=== PATIENT | female | born 1980 | race Caucasian/White ===

== ENCOUNTER 2016-11-23 11:30 | Inpatient (IN) ==
[2016-11-23] MEDS ORDERED: SODIUM CHLORIDE 0.9% INJ PRN (12:38)
[2016-11-23] MEDS ORDERED: LR 1,000 ML IV SCH (12:38)
[2016-11-23] MEDS ORDERED: NARCAN IV PRN ×2 (12:38→12:59)
[2016-11-23] MEDS ORDERED: DILAUDID-HP 30 MG in NS 27 ML IV PRN (12:38)
[2016-11-23] MEDS ORDERED: BENADRYL IV PRN ×2 (12:38→12:59)
[2016-11-23] MEDS ORDERED: PHENERGAN IV PRN (12:38)
--- NOTE | 2016-11-23 13:03 | Diag Imaging Result Doc PS360 ---
EXAM: CHEST-2 VIEWS HISTORY: postop pain-gallbladder TECHNIQUE: COMPARISON: None. FINDINGS: The lungs are well expanded. The heart is not enlarged. The vessels are not distended. There are no infiltrates. No pleural effusions. No free air beneath the diaphragm. IMPRESSION: No acute abnormality. Electronically signed by Antony Dupont 11/23/2016 1:00 PM
[2016-11-23] MEDS: LR 1,000 ML IV SCH (13:18)
[2016-11-23] MEDS: DILAUDID PCA VIAL IV PRN (13:18)
[2016-11-23] MEDS: D5 1/2 NS 1,000 ML IV SCH (14:27)
[2016-11-23] MEDS: KEFZOL 1 GM/D5W 1 GM/50 ML IVPB IV SCH ×2 (17:31→21:39)
[2016-11-23] MEDS: PROTONIX IV SCH (17:38)
[2016-11-23] MEDS: SODIUM CHLORIDE 0.9% INJ SCH (17:38)
[2016-11-23] MEDS: SODIUM CHLORIDE 0.9% INJ PRN (21:39)
[2016-11-23] MEDS: PHENERGAN IV PRN (21:39)
[2016-11-24] MEDS: ZOFRAN IV PRN (02:01)
[2016-11-24] MEDS: KEFZOL 1 GM/D5W 1 GM/50 ML IVPB IV SCH ×3 (04:08→20:48)
[2016-11-24] MEDS: D5 1/2 NS 1,000 ML IV SCH ×2 (04:08→20:56)
[2016-11-24] MEDS: PHENERGAN IV PRN ×2 (04:49→13:50)
[2016-11-24] MEDS: SODIUM CHLORIDE 0.9% INJ PRN ×2 (04:49→13:50)
[2016-11-24 06:35] LABS: MANUAL DIFF NEEDED? NO
[2016-11-24 06:47] LABS: BASO% 0.2 % (0.0-0.8); EOS# 0.05 X1000 (0.0-0.7); EOS% 0.3 % (0.0-10.0); HEMATOCRIT 38.1 % (37.0-47.0); HEMOGLOBIN 12.6 g/dL (12.0-16.0); IMM GRAN# 0.04 X1000 (0.0-0.04); IMM GRAN% 0.3 % (0.0-0.5); LYMPH# 2.19 X1000 (1.2-3.4); LYMPH% 13.9 % (20.5-51.1); MCHC 33.1 g/dL (33-37); MCV 81.8 FL (81-99); MONO# 0.97 X1000 (0.11-0.59); MONO% 6.2 % (1.7-9.3); MPV 10.6 FL (7.4-10.4); NEUT% 79.1 % (42.2-75.2); PLT 320 X1000 (130-400); RBC 4.66 XMIL (4.2-5.4)
[2016-11-24 07:03] LABS: AGAP 15; ALBUMIN 3.4 g/dL (3.5-5.0); ALKALINE PHOSPHATASE 51 U/L (32-104); BUN 8 mg/dL (8-22); CALCIUM 8.5 mg/dL (8.8-10.2); CHLORIDE 99 mmol/L (98-107); COSMO 277; GOT 41 U/L (10-30); GPT 35 U/L (10-36); POTASSIUM 4.1 mmol/L (3.5-5.1); SODIUM 138 mmol/L (136-145); TCO2 24 mmol/L (25-35); TOTAL BILIRUBIN 0.31 mg/dL (0.20-1.00); TOTAL PROTEIN 6.3 g/dL (6.3-8.3)
--- NOTE | 2016-11-24 08:10 | Diag Imaging Result Doc PS360 ---
EXAM: ABDOMEN/PELVIS W/PO AND IV CON INDICATION: postop pain-gallbladder TECHNIQUE: Dose reduction protocol was used. COMPARISON: None. FINDINGS: There is subsegmental atelectasis at the lung bases. There has been a very recent cholecystectomy. There is free fluid in the gallbladder fossa and a small to moderate amount of fluid tracking around the liver, spleen, and extending into the pelvis. Biliary leak cannot completely be excluded. Consider correlation with HIDA scan. There is no evidence of significant biliary dilatation. There is no loculated fluid collection to indicate abscess. There are a couple tiny droplets of gas anterior to the left hepatic lobe and in the infraumbilical region that are assumed to be postsurgical. Otherwise, the liver, spleen, adrenal glands, pancreas, kidneys, urinary bladder, reproductive tract, appendix, and GI tract are unremarkable. There are a few subcutaneous postsurgical gas droplets at the incisional sites. IMPRESSION: 1.Postsurgical changes related to a very recent cholecystectomy. 2.Small to moderate amount of free fluid in the gallbladder fossa, tracking around the liver and spleen, and extending to the pelvis. Bile leak cannot be excluded. Electronically signed by Moises Stahl 11/24/2016 8:08 AM
[2016-11-24] MEDS: LR 1,000 ML IV SCH (11:49)
--- NOTE | 2016-11-24 13:34 | Diag Imaging Result Doc PS360 ---
HIDA SCAN W/O EJECT. FRACTION - 11/24/2016 INDICATION: r/o bile leak TECHNIQUE: 4.9 mCi of Choletec was administered COMPARISON: CT abdomen pelvis earlier today FINDINGS: There is normal uptake and clearance by the liver. There is some uptake throughout the hepatic ducts and common bile duct. There is prompt, intense accumulation in the region of the gallbladder. This extends to the liver dome and tracks along the right abdominal wall. This is compatible with a bile leak probably from the cystic duct stump. IMPRESSION: Bile leak from the cystic duct stump. Electronically signed by Nba Ron 11/24/2016 1:32 PM
[2016-11-24] MEDS: DILAUDID PCA VIAL IV PRN (13:37)
[2016-11-24] MEDS: SODIUM CHLORIDE 0.9% INJ SCH (13:44)
[2016-11-24] MEDS: PROTONIX IV SCH (13:44)
[2016-11-24] MEDS ORDERED: DIPRIVAN 1% ONE (16:22)
[2016-11-24] MEDS ORDERED: LR 1,000 ML ONE (16:27)
[2016-11-24] MEDS ORDERED: MARCAINE 0.25% PF/EPI 1:200,000 ONE (16:27)
[2016-11-24] MEDS ORDERED: XYLOCAINE-MPF 2% ONE (16:44)
[2016-11-24] MEDS ORDERED: ZOFRAN ONE (16:44)
[2016-11-24] MEDS ORDERED: OFIRMEV 1000 MG/ISOTONIC SOLN 1,000 MG/100 ML BOTTLE ONE (16:44)
[2016-11-24] MEDS ORDERED: QUELICIN (DOSE) ONE (16:44)
[2016-11-24] MEDS ORDERED: ZEMURON ONE (16:44)
[2016-11-24] MEDS ORDERED: DECADRON ONE (16:44)
[2016-11-24] MEDS ORDERED: NEOSTIGMINE ONE (16:51)
[2016-11-24] MEDS ORDERED: TORADOL ONE (16:51)
[2016-11-24] MEDS ORDERED: ROBINUL ONE (16:51)
[2016-11-24] MEDS ORDERED: MORPHINE PCA ONE (17:48)
[2016-11-24] MEDS ORDERED: 1/2 NS 1,000 ML ONE (17:49)
--- NOTE | 2016-11-24 18:46 | OPERATIVE NOTE ---
PROCEDURE DATE: 11/24/2016 PREOPERATIVE DIAGNOSES: Bile leak from cholecystectomy 11/23. POSTOPERATIVE DIAGNOSIS: Bile leak from cholecystectomy 11/23. PROCEDURE: Laparoscopy with placement of drains. One drain in the right subphrenic space. One drain in the pelvis. DESCRIPTION OF PROCEDURE: The patient is brought to the operating room after satisfactory induction of IV and endotracheal anesthesia, athrombic TEDs and Blackburn catheter and orogastric tubes were placed. Her abdomen was broadly prepped and draped in the appropriate manner for laparoscopy. Initially, the recently closed infraumbilical scar was infiltrated with Marcaine and Xylocaine with epinephrine and re-incised. The Surgilon sutures were removed and the peritoneum was entered. Jackie trocar was placed. The abdomen was insufflated to 3.5 L of carbon dioxide. The previous right 10 mm incision in the epigastrium was subsequently reopened again after infiltration with Marcaine. A 10 mm trocar was placed. Several hundred mL of bile around the liver in the right subphrenic space was aspirated away. The lateral 5 mm trocar was subsequently reopened and a 5 mm trocar was re-placed. A 10 mm Olvin-Caicedo drain was subsequently placed in the right subphrenic space. It was brought out through the right lateral trocar incision, hooked to suction and anchored with 0 Surgilon. Attention was then taken to the pelvis in the left side of the abdomen. A 5 mm trocar was placed and another 10 mm Olvin-Caicedo drain was placed in the pelvis behind the uterus. Inspection of the right lower quadrant where the patient is having chronic lower abdominal pain revealed a normal-appearing appendix and a normal tube and ovary and uterus in this right side. The drains were both hooked to suction. A total of about 700 mL was removed. They were both anchored with 0 Surgilon. The trocars were subsequently removed. The subumbilical incision underwent fascial closures of 0 Surgilon. All skin incisions were closed with stainless steel clips. Sterile dressings were applied. The patient was awakened and extubated in the operating room and transferred to recovery. Estimated blood loss was less than 10 mL. Blackburn catheter was left indwelling. She will be transferred to Recovery and have a scheduled ERCP in the next 2 days or so. cc: Sha Daniels MD
[2016-11-24] MEDS: 1/2 NS 1,000 ML IV SCH (21:00)
[2016-11-25] MEDS: KEFZOL 1 GM/D5W 1 GM/50 ML IVPB IV SCH ×3 (05:01→22:00)
[2016-11-25] MEDS: 1/2 NS 1,000 ML IV SCH ×3 (05:02→16:31)
[2016-11-25 06:38] LABS: MANUAL DIFF NEEDED? NO
[2016-11-25 06:45] LABS: BASO% 0.1 % (0.0-0.8); HEMATOCRIT 36.7 % (37.0-47.0); IMM GRAN# 0.02 X1000 (0.0-0.04); IMM GRAN% 0.2 % (0.0-0.5); LYMPH# 1.52 X1000 (1.2-3.4); LYMPH% 13.4 % (20.5-51.1); MCH 27.1 PG (27-31); MCHC 32.7 g/dL (33-37); MONO# 0.84 X1000 (0.11-0.59); MONO% 7.4 % (1.7-9.3); MPV 10.6 FL (7.4-10.4); NEUT% 78.9 % (42.2-75.2); PLT 289 X1000 (130-400); RBC 4.42 XMIL (4.2-5.4)
[2016-11-25] MEDS: PHENERGAN IV PRN (06:54)
[2016-11-25] MEDS: SODIUM CHLORIDE 0.9% INJ PRN (06:54)
[2016-11-25 07:00] LABS: AGAP 10; ALBUMIN 3.3 g/dL (3.5-5.0); ALKALINE PHOSPHATASE 50 U/L (32-104); BUN 8 mg/dL (8-22); CALCIUM 8.2 mg/dL (8.8-10.2); CHLORIDE 101 mmol/L (98-107); COSMO 271; GOT 21 U/L (10-30); GPT 29 U/L (10-36); POTASSIUM 4.1 mmol/L (3.5-5.1); SODIUM 136 mmol/L (136-145); TCO2 25 mmol/L (25-35); TOTAL BILIRUBIN 0.39 mg/dL (0.20-1.00); TOTAL PROTEIN 6.2 g/dL (6.3-8.3)
--- NOTE | 2016-11-25 07:09 | Diag Imaging Result Doc PS360 ---
EXAM: CHEST-PORTABLE HISTORY: post op drain placement for bile leak TECHNIQUE: Portable COMPARISON: 11/23/2016 FINDINGS: Poor inspiratory effort. Heart is borderline mildly prominent. The vessels are not distended. No pneumonia. No pleural effusions identified. IMPRESSION: Stable chest. Electronically signed by Antony Dupont 11/25/2016 7:06 AM
[2016-11-25 08:17] LABS: INR 1.04; PTT 28.7 Seconds (22.0-36.0)
[2016-11-25] MEDS ORDERED: XYLOCAINE-MPF 2% ONE (10:57)
[2016-11-25] MEDS ORDERED: DIPRIVAN 1% ONE ×2 (10:57→12:17)
[2016-11-25] MEDS ORDERED: FENTANYL ONE ×2 (10:58→12:41)
[2016-11-25] MEDS ORDERED: VERSED ONE (11:55)
--- NOTE | 2016-11-25 12:47 | Diag Imaging Result Doc PS360 ---
EXAM: ERCP-BILIARY AND PANCREATIC HISTORY: s/p gallbladder surgery TECHNIQUE: Three views taken during a procedure performed by Dr. Vail COMPARISON: None. FINDINGS: Contrast fills the common bile duct. A catheter and stent were placed. Catheter was then removed. IMPRESSION: A stent was placed in the common bile duct. Electronically signed by Antony Dupont 11/25/2016 12:45 PM
[2016-11-25] MEDS: DILAUDID ONE ×2 (12:50→12:59)
--- NOTE | 2016-11-25 13:14 | OPERATIVE NOTE ---
PROCEDURE DATE: 11/25/2016 PROCEDURES: 1. Endoscopic retrograde cholangiopancreatography. 2. Endoscopic retrograde cholangiopancreatography with sphincterotomy. 3. Endoscopic retrograde cholangiopancreatography with stent placement. PREOPERATIVE DIAGNOSIS: Bile leak. POSTOPERATIVE DIAGNOSIS: Bile leak around the cystic duct stump, stented. DESCRIPTION OF PROCEDURE IN DETAIL: After informed consent and adequate intravenous sedation by anesthesia, the scope introduced to the esophagus, stomach and duodenum. Ampulla appears normal. A selective cholangiogram was done and the leak was established. At this point, a guidewire was placed all the way above the leak. A 9 cm, 10-[place] stent was deployed after standard sphincterotomy and the scope was withdrawn. The patient tolerated the procedure well without any immediate complications. cc: MD Sha Ferro MD
[2016-11-25] MEDS: SODIUM CHLORIDE 0.9% INJ SCH (13:41)
[2016-11-25] MEDS: PROTONIX IV SCH (13:41)
[2016-11-25] MEDS: DILAUDID PCA VIAL IV PRN (13:45)
[2016-11-25] MEDS: LR 1,000 ML IV SCH (16:31)
[2016-11-26] MEDS: 1/2 NS 1,000 ML IV SCH ×3 (02:00→21:50)
[2016-11-26] MEDS: KEFZOL 1 GM/D5W 1 GM/50 ML IVPB IV SCH ×3 (05:00→21:13)
[2016-11-26] MEDS: SODIUM CHLORIDE 0.9% INJ SCH ×2 (07:33→12:03)
[2016-11-26] MEDS: PHENERGAN IV PRN ×2 (07:33→17:41)
[2016-11-26] MEDS: PROTONIX IV SCH (12:03)
--- NOTE | 2016-11-26 12:24 | PROGRESS NOTE ---
DATE: 11/26/2016 SUBJECTIVE: Patient currently resting in bed. She complains of abdominal pain. She had a bile leak and she had an ERCP yesterday by Dr. Mcginnis and 9 cm 10-[place] stent was placed. Her KWABENA drains are draining a small amount of bilious fluid. She has had chronic constipation and IBS. Her last one was about 3-4 days ago. She has history of reflux disease in the past as well. She denies any vomiting during this hospitalization. She complains of nausea and bloating. She denies any fevers, rigors, or chills. OBJECTIVE: Vital signs: Temperature 98.2, pulse of 82, respiratory rate 20, blood pressure 122/71, saturating 93% 2 L nasal cannula. Body weight of 273 pounds 6 ounces, BMI of 38.1 kg/m2. General: Obese, lying in bed, in no acute distress. HEENT: No pallor. No icterus. Neck: Supple. Abdomen: Two drains noted, one in the right upper quadrant and one in the left upper quadrant draining a small amount of bilious fluid. Abdomen is appropriately tender. Bowel sounds are hypoactive. Extremities: No cyanosis, clubbing, edema. Neurologic: Alert, awake, oriented. LABS: Her hemoglobin and hematocrit are 12 and 36.7, white count of 11.35, platelet count 289,000. PT of 11, INR 1.04, PTT of 28.7. Sodium 130, potassium 4.1, chloride 101, bicarb 25, anion gap 10, BUN of 8, creatinine 0.7, glucose 118, calcium is 8.2, total bilirubin is 0.39, AST 21, ALT 29, alkaline phosphatase, total protein 6.2, albumin 3.3. CT of the abdomen and pelvis done on 11/24/2016 which showed post surgical changes recent cholecystectomy. Small to moderate amount of free fluid in the gallbladder foci suggesting bile leak. HIDA scan showed bile leak from the cystic duct stump. Chest x-ray done yesterday showed stable chest, poor inspiratory effort. ASSESSMENT AND PLAN: 1. Bile leak status post ERCP with common duct stenting on 11/25/2016. She will follow with Dr. Mcginnis in 4-6 weeks to perform ERCP stent removal. 2. Recent cholecystectomy. Low-fat diet when she is able to start orally. 3. Ileus and bloating. Will give her a dose of Dulcolax suppository and may start her on MiraLAX by mouth. 4. Will keep her on Protonix for GI prophylaxis once daily. 5. She will continue IV fluids and IV pain control per the primary care team. 6. The patient has ongoing gastrointestinal issues of irritable bowel syndrome. She will follow with me as an outpatient in order to work those up. Further recommendations pending hospital course. cc: MD Sha Harley MD Robert Hall, MD MTDD
[2016-11-26] MEDS: LR 1,000 ML IV SCH (18:25)
[2016-11-26] MEDS ORDERED: PHENERGAN IV ONE ×2 (20:54→21:00)
[2016-11-26] MEDS: SODIUM CHLORIDE 0.9% INJ ONE (21:13)
[2016-11-26] MEDS: DULCOLAX PR SCH (21:13)
[2016-11-27] MEDS: DILAUDID PCA VIAL IV PRN (02:40)
[2016-11-27] MEDS: KEFZOL 1 GM/D5W 1 GM/50 ML IVPB IV SCH ×3 (04:58→20:17)
[2016-11-27 06:24] LABS: MANUAL DIFF NEEDED? NO
[2016-11-27 06:27] LABS: BASO% 0.4 % (0.0-0.8); EOS# 0.19 X1000 (0.0-0.7); EOS% 2.1 % (0.0-10.0); HEMATOCRIT 32.9 % (37.0-47.0); HEMOGLOBIN 10.8 g/dL (12.0-16.0); IMM GRAN# 0.08 X1000 (0.0-0.04); IMM GRAN% 0.9 % (0.0-0.5); LYMPH# 1.61 X1000 (1.2-3.4); LYMPH% 17.9 % (20.5-51.1); MCH 27.1 PG (27-31); MCHC 32.8 g/dL (33-37); MCV 82.7 FL (81-99); MONO# 0.67 X1000 (0.11-0.59); MONO% 7.5 % (1.7-9.3); MPV 10.3 FL (7.4-10.4); NEUT% 71.2 % (42.2-75.2); PLT 284 X1000 (130-400); RBC 3.98 XMIL (4.2-5.4)
[2016-11-27 06:59] LABS: AGAP 9; ALBUMIN 2.9 g/dL (3.5-5.0); ALKALINE PHOSPHATASE 67 U/L (32-104); BUN 4 mg/dL (8-22); CALCIUM 8.6 mg/dL (8.8-10.2); CHLORIDE 97 mmol/L (98-107); COSMO 266; GOT 9 U/L (10-30); GPT 14 U/L (10-36); POTASSIUM 3.4 mmol/L (3.5-5.1); SODIUM 134 mmol/L (136-145); TCO2 28 mmol/L (25-35); TOTAL BILIRUBIN 0.46 mg/dL (0.20-1.00); TOTAL PROTEIN 6.1 g/dL (6.3-8.3)
[2016-11-27] MEDS: 1/2 NS 1,000 ML IV SCH ×2 (07:45→14:58)
[2016-11-27] MEDS: ZOFRAN IV PRN ×2 (07:48→20:31)
[2016-11-27] MEDS: SODIUM CHLORIDE 0.9% INJ SCH (13:00)
[2016-11-27] MEDS: PROTONIX IV SCH (14:56)
[2016-11-27] MEDS: LR 1,000 ML IV SCH (18:18)
[2016-11-27] MEDS: DULCOLAX PR SCH (20:17)
[2016-11-27] MEDS: SODIUM CHLORIDE 0.9% INJ ONE (23:45)
[2016-11-27] MEDS: PHENERGAN IV PRN (23:45)
[2016-11-28] MEDS: 1/2 NS 1,000 ML IV SCH ×4 (04:32→23:29)
[2016-11-28] MEDS: KEFZOL 1 GM/D5W 1 GM/50 ML IVPB IV SCH ×3 (04:32→23:28)
[2016-11-28] MEDS: SODIUM CHLORIDE 0.9% INJ PRN (05:59)
[2016-11-28] MEDS: PHENERGAN IV PRN (05:59)
[2016-11-28] MEDS: LR 1,000 ML IV SCH ×2 (11:44→11:45)
[2016-11-28] MEDS: PROTONIX IV SCH (13:35)
[2016-11-28] MEDS: SODIUM CHLORIDE 0.9% INJ SCH (13:36)
[2016-11-28] MEDS: DILAUDID PCA VIAL IV PRN (17:55)
[2016-11-28] MEDS: DULCOLAX PR SCH (23:48)
[2016-11-28] MEDS ORDERED: SODIUM CHLORIDE 0.9% INJ PRN (23:58)
[2016-11-29] MEDS: 1/2 NS 1,000 ML IV SCH ×2 (08:34→10:48)
[2016-11-29] MEDS: KEFZOL 1 GM/D5W 1 GM/50 ML IVPB IV SCH ×2 (08:46→13:43)
[2016-11-29] MEDS: LOVENOX SUBQ SCH (08:46)
[2016-11-29] MEDS: LR 1,000 ML IV SCH (11:29)
[2016-11-29] MEDS: PHENERGAN IV PRN ×3 (13:40→22:12)
[2016-11-29] MEDS: PROTONIX IV SCH (13:42)
[2016-11-29] MEDS: SODIUM CHLORIDE 0.9% INJ SCH (13:43)
[2016-11-30] MEDS: 1/2 NS 1,000 ML IV SCH ×2 (04:24→07:18)
[2016-11-30] MEDS: DULCOLAX PR SCH (04:24)
[2016-11-30] MEDS: KEFZOL 1 GM/D5W 1 GM/50 ML IVPB IV SCH ×2 (04:24→05:36)
[2016-11-30 05:24] LABS: BILIRUBIN URINE NEGATIVE (NEGATIVE); BLOOD URINE NEGATIVE (NEGATIVE); COLOR YELLOW; GLUCOSE URINE NEGATIVE (NEGATIVE); LEUKOCYTES URINE NEGATIVE (NEGATIVE); NITRITE URINE NEGATIVE (NEGATIVE); PROTEIN URINE NEGATIVE (NEGATIVE); SP GRAVITY URINE 1.009; TURBIDITY URINE CLEAR (CLEAR); UR EPITHELIAL CELLS <10 /HPF (<10); URINE BACTERIA NEGATIVE /HPF; URINE CULTURE NEEDED? NO; URINE MICRO REVIEW NEEDED? NO; URINE RBC <10 /HPF (<10); URINE SOURCE CLEAN CATCH; URINE WBC <10 /HPF (<10); UROBILINOGEN URINE NORMAL (NORMAL)
[2016-11-30] MEDS: LOVENOX SUBQ SCH (05:37)
[2016-11-30] MEDS: ZOFRAN IV PRN (11:33)
[2016-11-30 11:41] VITALS: BP 134/82
--- NOTE | 2016-11-30 17:56 | PROGRESS NOTE ---
DATE: 11/30/2016 SUBJECTIVE: Patient is resting in chair. Her friend was present at bedside. She denies any fevers, rigors, or chills. She was eating her meals better. She had 1 bowel movement yesterday. Her KWABENA drains were removed by Dr. Daniels. She denies any vomiting or vomiting blood. She does complain of mild constipation which is improving. OBJECTIVE: Vital signs: Temperature of 98.5, T-max this morning was 100.8, pulse rate of 89, respiratory rate of 18, blood pressure 121/65, saturating 93% on room air. Body weight of 273 pounds 6 ounces. General appearance: Moderately built, moderately nourished , sitting in chair, in no acute distress. HEENT: Mild pallor. No icterus. Neck: Supple. Abdomen: Discomfort at the surgical site and the drain site. The surgical dressings are noted. Bowel sounds are present but hypoactive. No guarding. No rebound. Extremities: No cyanosis, clubbing , edema. Neurologic: She is alert, awake, oriented. LABS: Hemoglobin and hematocrit are 10.8 and 32.9, white count of 8.97, platelet count of 284,000. Sodium 132, potassium 3.4, chloride 97, bicarb 20, anion gap of 9, BUN of 4, creatinine 0.7, glucose of 109, calcium is 8.6, AST 9, ALT 14, alkaline phosphatase 67, total protein 6.1, albumin of 2.9, total bilirubin is 0.46, amylase of 48. These labs are from 07/2016. Her urinalysis done today was unrevealing. IMPRESSION AND PLAN: 1. Bile leak status post endoscopic retrograde cholangiopancreatogram with common bile duct stenting on 11/25/[address] Mcginnis. The patient will follow up with Dr. Mcginnis in 4- 6 weeks to schedule for ERCP stent removal. 2. Constipation. She will continue on Dulcolax suppository at bedtime as needed and continue MiraLAX 34 g every day. 3. Reflux disease. She will continue on Prilosec/Protonix once daily for 6-8 weeks and then as needed. 4. Low grade temperature. Negative UA. Patient will need to keep an eye as an outpatient as well. If she continues to have worsening fever she needs to probably come back to the hospital. 5. Status post cholecystectomy she will continue follow up with Dr. Daniels. I also recommended her to be on a low-fat diet when she is able to start advancing her diet. The above plan was discussed with the patient and all questions answered. cc: MD Sha Harley MD Robert Hall, MD MTDD
--- NOTE | 2016-12-02 13:31 | DISCHARGE SUMMARY ---
ADMISSION DATE: 11/23/2016 DISCHARGE DATE: 11/30/2016 DIAGNOSIS: Bile leak status post cholecystectomy. PROCEDURES PERFORMED: 1. Repeat laparoscopy with drain placement right subphrenic space and pelvis. 2. ERCP by Dr. Mcginnis with stent placement. Prolonged hospitalization secondary to ileus and multiple complaints of pain. HOSPITAL COURSE: The patient is a 36-year-old, white female referred from [facility] and from Dr. Lesly Kang for evaluation of abdominal pain. Multiple workups have been obtained. She mostly has pain in her right lower quadrant. A CT scan has revealed no evidence of appendicitis. BIOMETRICS HEAD examination revealed no BIOMETRICS HEAD pathology. Outpatient ultrasound and a HIDA scan revealed no stones in the gallbladder but a low HIDA scan. She subsequently was admitted for a laparoscopic cholecystectomy. This was performed on the day of admission. On waking up at the surgery center, she still complained of right lower quadrant pain and was subsequently transferred from the surgery center to the hospital. Over the night she became in more pain. The HIDA scan performed the day after admission revealed a bile leak. She was subsequently taken to the operating room that afternoon with placement of drains, draining about 700 mL of bile. Cultures remain negative. Dr. Mcginnis was consulted and performed ERCP the next day. A stent was placed. She did have spasms around the stent. At the repeat laparoscopy examination of the right lower quadrant revealed a normal appendix and normal uterus tubes and ovaries. The patient complained usually of pain in the 10/10 frame the rest of the week. She did tolerated her dietary advancements and had spontaneous bowel movements. Drains slowed down enough to subsequently be removed and she was allowed home on [place], Colace and Zofran and multivitamins. DISCHARGE INSTRUCTIONS: She will be seen in the office in 1 week's time with repeat EGD and ERCP by Dr. Mcginnis in 4-6 weeks. I have spoken to Dr. Kang's office. This chronic pain that she has may eventually lead to a hysterectomy and they can remove her appendix at that time. cc: MD Lesly Whitley
== END 2016-11-30 13:13 | disposition home or self-care (01) ==
LOC: DIRADM → OBSVTOIN 11:30 → 3N 11:47
PROVIDERS: ADMIT Surgery; ATTEND Surgery

== ENCOUNTER 2016-12-06 04:04 | Inpatient (IN) ==
[2016-12-06 04:59] LABS: BASO% 0.4 % (0.0-0.8); EOS% 0.5 % (0.0-10.0); HEMATOCRIT 34.9 % (37.0-47.0); HEMOGLOBIN 11.4 g/dL (12.0-16.0); IMM GRAN# 0.09 X1000 (0.0-0.04); IMM GRAN% 0.5 % (0.0-0.5); LYMPH# 2.11 X1000 (1.2-3.4); MANUAL DIFF NEEDED? NO; MCH 26.4 PG (27-31); MCHC 32.7 g/dL (33-37); MCV 80.8 FL (81-99); MONO# 1.23 X1000 (0.11-0.59); MONO% 6.4 % (1.7-9.3); NEUT% 81.2 % (42.2-75.2); PLT 721 X1000 (130-400); RBC 4.32 XMIL (4.2-5.4)
[2016-12-06 05:14] LABS: AGAP 19; ALKALINE PHOSPHATASE 123 U/L (32-104); AMYLASE 50 U/L (20-200); BUN 10 mg/dL (8-22); CALCIUM 8.8 mg/dL (8.8-10.2); CHLORIDE 90 mmol/L (98-107); COSMO 275; GOT 31 U/L (10-30); GPT 27 U/L (10-36); LIPASE 30 U/L (13-60); POTASSIUM 4.4 mmol/L (3.5-5.1); SODIUM 137 mmol/L (136-145); TCO2 28 mmol/L (25-35); TOTAL BILIRUBIN 0.44 mg/dL (0.20-1.00); TOTAL PROTEIN 8.1 g/dL (6.3-8.3)
--- NOTE | 2016-12-06 05:25 | PROVIDER DOCUMENTATION ---
HPI-Abdominal Pain/GI Problem - General Chief Complaint: Post Op Complaint Stated Complaint: VOMITING Time Seen by Provider: 12/06/16 04:45 Source: patient, family, old records Allergies/Adverse Reactions: Patient Allergies Allergy/AdvReac Type Severity Reaction Status Date / Time sulfamethoxazole Allergy RASH Verified 12/06/16 04:52 [From ] trimethoprim [From ] Allergy RASH Verified 12/06/16 04:52 Home Medications: Home Medication List Medication Instructions Recorded Confirmed Last Taken Type Amlodipine [Norvasc] 5 mg PO BID 11/24/16 11/24/16 Unknown History Ergocalciferol (Vitamin D2) 2,000 unit PO DAILY 11/24/16 11/24/16 Unknown History [Vitamin D2] LISINOpril [Prinivil] 10 mg PO DAILY 11/24/16 11/24/16 Unknown History Metformin [Glucophage] 500 mg PO BID 11/24/16 11/24/16 Unknown History Norgestrel-Ethinyl Estradiol 1 each PO DAILY 11/24/16 11/24/16 Unknown History [Elinest-28 Tablet] Omeprazole [Prilosec] 20 mg PO DAILY 11/24/16 11/24/16 Unknown History Spironolactone 50 mg PO DAILY 11/24/16 11/24/16 Unknown History Cephalexin [Keflex] 500 mg PO TID #15 capsule 11/30/16 Unknown Rx Hydrocodone/Acetaminophen [[place] 1 each PO Q4H PRN PRN #30 tablet 11/30/16 Unknown Rx 10-325 Tablet] Multivitamin with Iron [Daily 1 each PO DAILY #100 tablet 11/30/16 Unknown Rx Multivitamin with Iron] Ondansetron HCl [Zofran] 4 mg PO Q4H PRN PRN #20 tablet 11/30/16 Unknown Rx - History of Present Illness-ABD Nature of Presenting Problems: 36 YOWF underwent lap william for abdominal pain and abn HIDA scan about two weeks ago. Surgery was complicated by a bile leak for which a stent was placed by Dr. Caceres. She was treated for a week with IV antibiotics and discharged on the seventh post op day after removing all drains. She continued on po abx and was seen [address] Wilkerson and seemed to be progressing appropriately. Tonight she began vomiting and having watery, black diarrhea prompting return to the ER. Abdominal Pain Onset Location: reports: RUQ, RLQ Pain Radiation: reports: no radiation Quality of Pain: reports: fullness, pressure Severity in ED: reports: moderate Onset/Duration: reports: 2 days ago Timing: reports: getting worse Activities at Onset: reports: light activity Exposure to sick contacts?: No Modifying Factors: improves with: eating Associated Symptoms: reports: vomiting, weakness Last BM: this evening Dark Stools Present?: reports: black Rectal Bleeding: reports: none Rectal Pain: reports: none Emesis Description: reports: clear Bruising or Bleeding Gums?: No Similar Symptoms Previously?: Yes Recently seen or treated by another doctor?: Yes (Dr Wilkerson) Review of Systems - Adult - REVIEW OF SYSTEMS - ADULT Constitutional: reports: fever, weight loss Eyes: reports: no symptoms reported Ears, Nose, Mouth & Throat: reports: no symptoms reported Cardiovascular: reports: no symptoms reported Respiratory: reports: no symptoms reported Gastrointestinal: reports: see HPI Genitourinary: reports: no symptoms reported Musculoskeletal: reports: no symptoms reported Integumentary: reports: no symptoms reported Neurological: reports: no symptoms reported Psychiatric: reports: no symptoms reported Endocrine: reports: no symptoms reported Hematologic/Lymphatic: reports: no symptoms reported Allergic/Immunologic: reports: no symptoms reported Past History - Adult - PAST MEDICAL HISTORY-ADULT Review of Records: reports: Old Records Reviewed, Nursing Assessment Review, Medications Reviewed Physical Exam-General - PHYSICAL EXAM-ADULT Initial Vital Signs Reviewed: Yes - CONSTITUTIONAL General Appearance: mild distress, anxious, slow to respond - EYES Eyes: PERRL/EOMI, pink conjunctivae - HEAD, EARS, NOSE, MOUTH & THROAT HENMT: normal ENT inspection - NECK Neck: non-tender, full range of motion - RESPIRATORY Respiratory: chest non-tender, lungs clear, normal breath sounds - CARDIOVASCULAR Cardiovascular: normal peripheral pulses, regular rate, rhythm, no edema, no gallop, no JVD, no murmur - GASTROINTESTINAL (ABDOMEN) Abdominal Exam: normal bowel sounds, soft, no organomegaly, no pulsatile mass, guarding, tenderness - LYMPHATIC Lymphatic: no adenopathy - MUSCULOSKELETAL Back Exam: normal inspection, no CVA tenderness Extremity: normal range of motion - SKIN Integumentary: normal color, normal turgor - NEUROLOGIC Neurologic: grossly normal - PSYCHIATRIC Psych/Mental Status: normal mood/affect Progress - PLAN OF CARE/RESULTS Progress/Plan/Lab Results: Vital Signs - 8 hr 12/06/16 04:10 Temperature 97.6 F Pulse Rate 109 H Respiratory Rate 20 Blood Pressure 106/57 O2 Sat by Pulse Oximetry 97 Laboratory Results - last 24 hr 12/06/16 04:38 WBC 19.12 H RBC 4.32 Hgb 11.4 L Hct 34.9 L MCV 80.8 L MCH 26.4 L MCHC 32.7 L RDW Std Deviation 13.8 Plt Count 721 H MPV 9.0 Immature Gran % (Auto) 0.5 Neut % (Auto) 81.2 H Lymph % (Auto) 11.0 L Oliver % (Auto) 6.4 Eos % (Auto) 0.5 Baso % (Auto) 0.4 Immature Gran # (Auto) 0.09 H Neut # (Auto) 15.52 H Lymph # (Auto) 2.11 Oliver # (Auto) 1.23 H Eos # (Auto) 0.10 Baso # (Auto) 0.07 Orders Category Date Time Status Saline Loc DIRECTED Care 12/06/16 04:45 Active NPO Diet 12/06/16 04:[address] ABD/PELVIS W/ IV CONT ONLY [CT] Stat Exams 12/06/16 05:10 Ordered AMYLASE [CHEM] Stat Lab 12/06/16 04:38 Received CBC WITH ELECTRONIC DIFF [HEME] Stat Lab 12/06/16 04:38 Completed COMPREHENSIVE METABOLIC PANEL [CHEM] Stat Lab 12/06/16 04:38 Received LIPASE [CHEM] Stat Lab 12/06/16 04:38 Received TYPE & SCREEN [BBK] Stat Lab 12/06/16 04:38 Received URINALYSIS W/POSS RFLX CULT-1 [URINALYSIS] Stat Lab 12/06/16 04:45 Uncollected Result Diagrams: 12/06/16 04:38 12/06/16 04:38 - CT/MRI 1 CT Study: Pelvis Impression: Abnormal (stent in proper position, multiple fluid collections possible abcess or bile), See EMR Report Departure - Departure Date of Disposition Decision: 12/06/16 Time of Disposition Decision: 06:26 DIAGNOSIS: Post-operative complication Qualifiers: Surgical complication system/body Area: digestive system Surgical complication type: other Qualified Code(s): K91.89 - Other postprocedural complications and disorders of digestive system Disposition: ADMITTED INPATIENT 09 Certified Medical Emergency: Emergent Condition: Fair Referrals and Follow-Ups: Mal Hicks [Primary Care Provider] - - Critical Care Note This patient required my direct & personal management of CC.: Yes Total Time (mins): 45 Critical Care Statement: This patient required my direct personal management to treat or rule out processes, the absence of which, could potentiallly result in sudden, clinically significant life or limb threatening deterioration. Attestation - Physician/ KAREN Attestation Patient care was provided by Advanced Practice Provider:: No The physician spent face to face time with patient:: Yes Advanced Practice Provider documentation review:: Supervising physician onsite and consulted in the evaluation and care of this patient. The physician did have a face to face encounter with the patient.
[2016-12-06] MEDS ORDERED: NS 1,000 ML IV ONE (05:29)
[2016-12-06] MEDS ORDERED: ZOFRAN IV ONE (05:29)
[2016-12-06] MEDS: ZOSYN 3.375 GM/NS 3.375 GM/50 ML IVPB IV SCH ×4 (06:47→22:33)
--- NOTE | 2016-12-06 07:23 | Diag Imaging Result Doc PS360 ---
EXAM: CT ABD/PELVIS W/ IV CONT ONLY HISTORY: POST OP VOMITING, FEVER AND LEUKOCYTOSIS TECHNIQUE: CT of the abdomen and pelvis with intravenous contrast and dose reduction (clarity.) COMMENT: There has been some improvement in the bibasal or atelectasis which was present on 11/24/2016. The fluid collections in the subphrenic spaces have largely resolved. There is still a loculated fluid collection in the area of the gallbladder fossa, but also a fairly well circumscribed intrahepatic collection posterior to the gallbladder fossa in the area of the caudate lobe which measures 4.8 cm in transverse dimension. This was not present at the time the previous study. There is a biliary stent within the common hepatic and common bile ducts terminating in the duodenum. The kidneys are without evidence of hydronephrosis or mass. The adrenal glands and spleen are stable in appearance. There is no evidence of bowel obstruction. Postsurgical changes in the midabdomen are again noted. Pelvis: There is a tiny amount of free fluid in the pelvis. The urinary bladder is unremarkable. There is what appears to be a surgical clip near the right round ligament. Small amount of gas is present in the urinary bladder which may have been introduced by instrumentation. The regional skeleton is stable in appearance. IMPRESSION: 1. New fluid collection in the liver which may represent an abscess or biloma. 2. Improved atelectasis and ascites present on the previous study. The findings were discussed with Sha Wilkerson M.D. at 12/06/2016 7:19 AM. Electronically signed by Herb Archuleta 12/06/2016 7:20 AM
[2016-12-06] MEDS ORDERED: MORPHINE IV PRN (08:41)
[2016-12-06] MEDS ORDERED: TYLENOL PO PRN (08:43)
[2016-12-06] MEDS: ZOFRAN IV PRN (09:21)
[2016-12-06] MEDS: SODIUM CHLORIDE 0.9% INJ SCH (09:23)
[2016-12-06] MEDS: PROTONIX IV SCH (09:23)
[2016-12-06] MEDS: D5 1/2 NS 1,000 ML IV SCH (09:34)
[2016-12-06] MEDS: DILAUDID IV PRN ×2 (11:12→15:19)
[2016-12-06] MEDS: PHENERGAN IV PRN ×3 (11:12→20:05)
[2016-12-06] MEDS ORDERED: D5 1/2 NS + KCL 20 MEQ 1,000 ML IV SCH ×2 (20:28→20:39)
[2016-12-06] MEDS ORDERED: 1/2 NS IV SCH (21:00)
[2016-12-06] MEDS ORDERED: KCL IV SCH (21:00)
[2016-12-06] MEDS ORDERED: D5 IV SCH (21:00)
[2016-12-07] MEDS: DILAUDID IV PRN ×2 (01:39→21:58)
[2016-12-07] MEDS: PHENERGAN IV PRN ×3 (01:39→21:58)
[2016-12-07] MEDS: D5 1/2 NS 1,000 ML IV SCH ×4 (01:40→22:05)
[2016-12-07] MEDS: ZOSYN 3.375 GM/NS 3.375 GM/50 ML IVPB IV SCH ×3 (04:01→21:57)
[2016-12-07 06:01] LABS: MANUAL DIFF NEEDED? NO
[2016-12-07 06:04] LABS: BASO% 0.2 % (0.0-0.8); EOS# 0.16 X1000 (0.0-0.7); HEMATOCRIT 31.8 % (37.0-47.0); HEMOGLOBIN 10.2 g/dL (12.0-16.0); IMM GRAN# 0.05 X1000 (0.0-0.04); IMM GRAN% 0.3 % (0.0-0.5); LYMPH# 1.75 X1000 (1.2-3.4); LYMPH% 11.3 % (20.5-51.1); MCH 26.5 PG (27-31); MCHC 32.1 g/dL (33-37); MCV 82.6 FL (81-99); MONO# 0.85 X1000 (0.11-0.59); MONO% 5.5 % (1.7-9.3); MPV 8.9 FL (7.4-10.4); NEUT% 81.7 % (42.2-75.2); PLT 617 X1000 (130-400); RBC 3.85 XMIL (4.2-5.4)
[2016-12-07 06:13] LABS: INR 1.08; PROTIME 11.4 Seconds (9.2-11.7); PTT 30.1 Seconds (22.0-36.0)
[2016-12-07 06:40] LABS: AGAP 11; ALBUMIN 3.1 g/dL (3.5-5.0); ALKALINE PHOSPHATASE 113 U/L (32-104); AMYLASE 65 U/L (20-200); BUN 8 mg/dL (8-22); CALCIUM 8.1 mg/dL (8.8-10.2); CHLORIDE 95 mmol/L (98-107); COSMO 273; GOT 53 U/L (10-30); GPT 61 U/L (10-36); POTASSIUM 4.6 mmol/L (3.5-5.1); SODIUM 135 mmol/L (136-145); TCO2 29 mmol/L (25-35); TOTAL BILIRUBIN 0.33 mg/dL (0.20-1.00); TOTAL PROTEIN 7.3 g/dL (6.3-8.3)
--- NOTE | 2016-12-07 11:52 | Diag Imaging Result Doc PS360 ---
ABDOMEN W/O CONTRAST - 12/07/2016 INDICATION: Perihepatic fluid collection status post cholecystectomy. Common bile duct stent. TECHNIQUE: A CT dose reduction protocol was used. COMPARISON: 12/06/2016 FINDINGS: Scanning was performed to evaluate for drainage of the subhepatic fluid collection. This collection is much smaller and less distinct on today's exam. This previously measured almost 5 cm maximally, now measuring about 3.7 cm. The common bile duct stent is in good position. No new abnormalities. Nasogastric tube is coiled in the stomach. IMPRESSION: Significant decrease in size of the subhepatic fluid collection. No new abnormalities or complications. Electronically signed by Nba Ron 12/07/2016 11:50 AM
--- NOTE | 2016-12-07 12:59 | Diag Imaging Result Doc PS360 ---
EXAM: HIDA SCAN W/O EJECT. FRACTION HISTORY: Nausea TECHNIQUE: 5.5 mCi of technetium 99m Choletec COMMENT: There is prompt accumulation of activity in the liver with activity seen in the small bowel by 11 minutes. There is some prominence of activity in the intrahepatic bile ducts particularly in the left hepatic lobe. No evidence of accumulation of activity outside of the biliary tract or liver is demonstrated. IMPRESSION: No evidence of bile leak. No evidence of obstruction of the common bile duct. The possibility of intrahepatic biliary dilatation cannot be excluded. Electronically signed by Herb Archuleta 12/07/2016 12:56 PM
[2016-12-07] MEDS ORDERED: DILAUDID IV ONE (14:00)
[2016-12-07] MEDS: SODIUM CHLORIDE 0.9% INJ PRN ×2 (15:32→21:58)
[2016-12-07] MEDS: PROTONIX IV SCH (15:32)
[2016-12-07] MEDS: SODIUM CHLORIDE 0.9% INJ SCH (15:32)
[2016-12-07] MEDS ORDERED: AMBIEN PO PRN (15:41)
--- NOTE | 2016-12-07 16:17 | CONSULTATION ---
DATE OF CONSULTATION: 12/07/2016 ADMITTING PHYSICIAN: Sha Daniels MD. PRIMARY CARE DOCTOR: Mal Hicks MD. REASON FOR CONSULTATION: Abdominal pain, nausea, vomiting, and a small collection in the caudate lobe of the liver, history of bile leak. HISTORY OF PRESENT ILLNESS: Ms. Bee is a 36-year-old female who has a history of recent cholecystectomy complicated by a bile leak requiring ERCP with common bile stenting on 11/25/2016. She was discharged home on 12/02/2016 and was readmitted yesterday with symptoms of vomiting, abdominal pain in right upper quadrant which got worse and she presented to the hospital. In the hospital she was noted to have an elevated white count. She had imaging with CT scan which showed a new fluid collection in the liver measuring 4.8 cm in transverse dimension in the caudate lobe which could represent abscess or myeloma and improved atelectasis at ascites seen on previous study. She also complained of watery stools. She denied any vomiting or passing blood in the stools. In the hospital she had an NG tube placed which drained about 650 mL of bilious drainage. She had a T-max of 100 degrees Fahrenheit on admission but it has gotten better. PAST MEDICAL HISTORY: 1. Bile leak status post ERCP on 11/25/[address] Mcginnis with stent placement. 2. Recent cholecystectomy. 3. Reflux disease. 4. Constipation. 5. Irritable bowel syndrome. 6. Obesity. PAST SURGICAL HISTORY: 1. Cholecystectomy. 2. ERCP. ALLERGIES: Sulfamethoxazole and trimethoprim. MEDICATIONS AT HOME: 1. Norgestrel/ethinyl estradiol 1 tab daily. 2. Spironolactone 50 mg daily. 3. Amlodipine 5 mg p.o. b.i.d. 4. Vitamin D 2000 units once a day. 5. Lisinopril 10 mg once a day. 6. Metformin 5 mg p.o. b.i.d. 7. Cephalexin 5 mg p.o. t.i.d. 8. Multivitamin once daily. 9. [place] 10/325 every 4 hours. 10. Phenergan 25 mg p.o. q.6 hours as needed. MEDICATIONS IN THE HOSPITAL: 1. Tylenol 650 mg p.o. q.4 hours as needed. 2. Dulcolax 10 mg per rectum at bedtime. 3. Dextrose 5% with 100 mL/h. 4. Dilaudid 1-2 mg every 2 hours as needed. 5. Zofran 4 mg IV every 4 hours needed. 6. Protonix IV q. 24 hours. 7. Phenergan 25 mg q. IV p.r.n.. 8. Zosyn 3.375 mg g IV q.6 hours. 9. She is currently NPO. REVIEW OF SYSTEMS: Patient denies any current fevers, rigors, chills, chest pain, shortness of breath or dyspnea at rest. Denies any genitourinary complaints. She does complain of abdominal discomfort and discomfort in the nose from NG tube placement Her nausea is better. She denies any vomiting or passing blood in the stools. PHYSICAL EXAMINATION: Vital Signs: Temp 98.3 degrees, pulse 80, respiratory rate 18, blood pressure 119/70, saturating 94% on room air. Body weight of 241 pounds. BMI of 33.6 kg. General: Ms. Bee is lying in bed, in no acute distress. HEENT: Pale conjunctivae. No icterus. NG tube in place. Pupils equal, round and reactive to light. Neck: Supple. Abdomen: Soft. Discomfort in the right upper quadrant. No rebound. No guarding. Bowel sounds. Extremities: No cyanosis, clubbing, edema. Neurologic: She is alert, awake, oriented. Cardiovascular: Regular rhythm. Chest: Decreased breath sounds. LABS: 1. Her hemoglobin and hematocrit is 10.2 and 31.8, white count of 15.5, platelet count of 617,000, neutrophils 81.7%, PT of 11.4, INR 1.08, PTT of 30.1. Sodium 130, potassium 4.6, chloride 95, bicarb 29, anion gap of 11, BUN of 8, creatinine 0.9, glucose of 174, calcium is 8.1, total bilirubin is 0.3, AST 53, ALT 61, alkaline phosphatase 113, total protein 7.3, albumin of 3.1, amylase of 50, lipase of 30, lactate of 1.2. 2. CT scan of abdomen and pelvis done on 12/06/2016 showed improvement in bibasilar atelectasis which was seen on 11/24/2016. 3. Fluid collections in subphrenic spaces have largely resolved. 4. A loculated fluid collection in the ileum of gallbladder foci, fairly well- circumscribed intrahepatic collection posterior to the gallbladder foci in the area of caudate lobe measures 4.8 cm in transverse dimension. This was not present on previous study. There is a biliary 3 stent in the common hepatic duct and common bile duct in the duodenum. Kidneys are without any evidence of hydronephrosis or mass. No evidence of bowel obstruction. Post-surgical changes in the mid abdomen noted, Tiny amount of free fluid noted in the pelvis. Surgical clip near the right round ligament, small amount of gas in the urinary bladder. 5. Blood cultures x2 have been drawn and are currently pending. IMPRESSION/PLAN: 1. New loculated circumscribed collection noted in the caudate lobe of the liver around 4.8 cm on imaging likely from previous history of bile leak. We need to evaluate for any kind of abscess. 2. Nausea, vomiting, abdominal pain secondary to the above. 3. Reflux disease. 4. Irritable bowel syndrome. 5. Constipation history and diarrhea intermittent. 6. Bile leak status post ERCP on 11/25/[address] Mcginnis. RECOMMENDATIONS: 1. We will continue supportive treatment. We will continue IV fluids, IV pain control and IV antibiotics. 2. The patient is scheduled for CT-guided drainage of the collection today with the radiologist. We will review the results. 3. We will check the patient's CBD stent by a HIDA scan. 4. We will keep her on PPIs. 5. Patient will continue to be NPO for now until cleared by the surgical team. 6. The above plan was discussed with the patient, family and Dr. Daniels. cc: MD Sha Harley MD Robert Hall, MD [facility]
[2016-12-07] MEDS: DULCOLAX PR SCH (21:59)
[2016-12-08] MEDS: SODIUM CHLORIDE 0.9% INJ PRN ×2 (02:38→18:30)
[2016-12-08] MEDS: DILAUDID IV PRN ×4 (02:38→23:20)
[2016-12-08] MEDS: ZOSYN 3.375 GM/NS 3.375 GM/50 ML IVPB IV SCH ×3 (02:38→14:03)
[2016-12-08] MEDS: PHENERGAN IV PRN ×2 (02:38→18:30)
[2016-12-08] MEDS: D5 1/2 NS 1,000 ML IV SCH ×3 (06:36→23:23)
[2016-12-08 07:43] LABS: MANUAL DIFF NEEDED? NO
[2016-12-08 07:56] LABS: BASO% 0.3 % (0.0-0.8); EOS# 0.42 X1000 (0.0-0.7); EOS% 3.5 % (0.0-10.0); HEMATOCRIT 30.2 % (37.0-47.0); HEMOGLOBIN 9.5 g/dL (12.0-16.0); IMM GRAN# 0.03 X1000 (0.0-0.04); IMM GRAN% 0.3 % (0.0-0.5); LYMPH% 17.6 % (20.5-51.1); MCHC 31.5 g/dL (33-37); MCV 82.7 FL (81-99); MONO# 0.66 X1000 (0.11-0.59); MONO% 5.5 % (1.7-9.3); NEUT% 72.8 % (42.2-75.2); PLT 588 X1000 (130-400); RBC 3.65 XMIL (4.2-5.4)
[2016-12-08 08:09] LABS: AGAP 14; ALBUMIN 2.4 g/dL (3.5-5.0); ALKALINE PHOSPHATASE 99 U/L (32-104); BUN 6 mg/dL (8-22); CALCIUM 8.4 mg/dL (8.8-10.2); CHLORIDE 94 mmol/L (98-107); COSMO 266; GOT 40 U/L (10-30); GPT 71 U/L (10-36); POTASSIUM 4.1 mmol/L (3.5-5.1); SODIUM 133 mmol/L (136-145); TCO2 25 mmol/L (25-35); TOTAL BILIRUBIN 0.32 mg/dL (0.20-1.00); TOTAL PROTEIN 6.8 g/dL (6.3-8.3)
[2016-12-08] MEDS: REGLAN IV SCH ×3 (08:09→23:45)
[2016-12-08] MEDS: PROTONIX IV SCH (08:10)
[2016-12-08] MEDS: SODIUM CHLORIDE 0.9% INJ SCH (08:10)
[2016-12-08] MEDS: ZOSYN 3.375 GM in NS 50 ML IV SCH (20:02)
[2016-12-08] MEDS: DULCOLAX PR SCH (20:04)
[2016-12-09] MEDS: ZOSYN 3.375 GM in NS 50 ML IV SCH ×4 (02:00→20:17)
[2016-12-09 04:35] LABS: URINE CULTURE NEEDED? NO; URINE SOURCE CLEAN CATCH
[2016-12-09 04:40] LABS: BILIRUBIN URINE NEGATIVE (NEGATIVE); BLOOD URINE NEGATIVE (NEGATIVE); COLOR YELLOW; GLUCOSE URINE NEGATIVE (NEGATIVE); LEUKOCYTES URINE NEGATIVE (NEGATIVE); NITRITE URINE NEGATIVE (NEGATIVE); PROTEIN URINE TRACE mg/dL (NEGATIVE); SP GRAVITY URINE 1.015; TURBIDITY URINE CLEAR (CLEAR); UROBILINOGEN URINE NORMAL (NORMAL)
[2016-12-09 04:41] LABS: URINE MICRO REVIEW NEEDED? YES
[2016-12-09 04:54] LABS: UR EPITHELIAL CELLS <10 /HPF (<10); URINE BACTERIA NEGATIVE /HPF; URINE RBC <10 /HPF (<10); URINE WBC <10 /HPF (<10)
[2016-12-09] MEDS: DILAUDID IV PRN ×4 (07:46→23:44)
[2016-12-09] MEDS: D5 1/2 NS 1,000 ML IV SCH ×3 (07:46→23:43)
[2016-12-09] MEDS: PROTONIX IV SCH (08:36)
[2016-12-09] MEDS: SODIUM CHLORIDE 0.9% INJ SCH (08:36)
[2016-12-09] MEDS: REGLAN IV SCH ×3 (08:36→23:45)
[2016-12-09] MEDS: SODIUM CHLORIDE 0.9% INJ PRN ×2 (08:49→14:29)
[2016-12-09] MEDS: PHENERGAN IV PRN ×2 (08:49→14:29)
[2016-12-09] MEDS ORDERED: DULCOLAX PR ONE (12:22)
[2016-12-09] MEDS ORDERED: LINZESS PO ONE (13:59)
--- NOTE | 2016-12-09 14:35 | PROGRESS NOTE ---
DATE: 12/08/2016 SUBJECTIVE: The patient is feeling better. Complaining about clear liquids. She wants to have something solid. No nausea and vomiting. She had a HIDA scan, which showed prompt emptying into the small bowel. OBJECTIVE: Vital Signs: Temp 98 degrees, pulse 80, respirations 18, blood pressure 118/70, saturation 94% on room air. General: She is in no acute distress. HEENT: Mild conjunctival pallor. No icterus. Patient is tolerating p.o. intake. Neck: Supple. Abdomen: Soft. Mild discomfort at the surgical site. No rebound, guarding, or rigidity. Bowel sounds present and normal. Extremities: No cyanosis or clubbing. Neurological: Alert and oriented. LABORATORY DATA: 1. Hemoglobin and hematocrit are same at 10 and 31, white count is normal. INR is normal. LFTs are normal. HIDA scan again showed no leak and prompt emptying, showing patency of the stent. 2. Fluid collection has largely been resolved. 3. A small loculated fluid collection. It does not seem to be infected. This is probably residual and should go away. 4. Blood cultures, so far, are negative. IMPRESSION: 1. Status post cholecystectomy. 2. Bile leak, status post stent placement. 3. Nausea, vomiting, abdominal pain. 4. Gastroesophageal reflux disease. 5. Irritable bowel. 6. Constipation. PLAN: I think she is fine. I do not think she probably needs drainage of this. I have explained some element of discomfort is not unlikely with her condition. The patient also expressed a desire to eat solid food, so we will advance the food. I will keep the stent for at least 2 to 3 months because the patient appears to have displaced and open cystic duct, which may take a little while to heal. Mother is at bedside, and she understands. cc: MD Sha Ferro MD
--- NOTE | 2016-12-09 14:55 | PROGRESS NOTE ---
DATE: 12/09/2016 SUBJECTIVE: The patient currently resting in bed. She had vomiting last night after eating pasta and, this morning, she also had vomiting after eating oatmeal, but she just drank a liquid diet and she kept it down well. She does have mild discomfort in the abdomen and bloating sensation. She had some small bowel movement this morning. She denied any vomiting blood or passing blood in the stools.Vital signs: Temperature 98.3, pulse rate 79, respiratory 19, blood pressure 115/64, saturating 100% room air. Body weight of 241 pounds. General appearance: Obese, lying in bed, in no acute distress. HEENT: Mild pallor. No icterus. Neck: Supple. Abdomen: Protuberant, obese, soft. Discomfort in the right upper quadrant. Bowel sounds are present , but hypoactive. No rebound. No guarding. Extremities: No cyanosis, clubbing, and edema. Neurologic: She is alert, awake, oriented. LABORATORIES: Hemoglobin and hematocrit are 9.5 and 30.2, white count 11.96, platelet count of 588,000, MCV of 82.7. Sodium 133, potassium 4.1, chloride 94, bicarb 20, anion gap of 14, BUN of 6, creatinine 0.9, glucose 133, calcium is 8.4. Total bilirubin is 0.32, AST is 40, ALT 71, alkaline phosphatase 99. Total protein 6, albumin of 2.4, lipase of 30, amylase 65. Urinalysis showing trace protein. IMAGING: Her HIDA scan done on December 07 showed no evidence of bile leak. No evidence any obstruction of the common bile duct. The CT scan of the abdomen, done on 2016, showed significant decrease in the size of the subhepatic collection, which measured 3.7 cm. The common bile duct stent has been placed, in good position. IMPRESSION AND PLAN: 1. Cholecystectomy, complicated with bile leak. Required endoscopic retrograde cholangiopancreatography with stenting, and now admitted with abdominal pain and leukocytosis. Found to have a small subhepatic collection on the right side, which is getting better with antibiotics. The radiologist felt it was not amenable for drainage, as it was already improving, based on CT scans on 2 consecutive days. 2. Reflux disease. Start on Prilosec once daily for 8 to 12 weeks on discharge , and then wean down to Zantac 150 mg p.o. b.i.d. 3. Irritable bowel syndrome with constipation. We will keep the patient on MiraLAX twice daily and Dulcolax at that time. If the patient's symptoms persistent, then we will start on her on Linzess as well. I will give her one dose of the Linzess today. 4. Gastrointestinal prophylaxis with proton pump inhibitors. 5. Obesity. The patient was also counseled to keep a watch on her diet, and try to lose some weight. She could have some component of fatty liver disease causing mild elevated liver enzymes. We will follow up on liver enzymes on a regular basis as an outpatient. The patient was to follow up with us in 4 weeks after discharge. The above plan of care was discussed with the patient and family, and all questions were answered. cc: MD Sha Harley MD MTDD
[2016-12-09] MEDS: ZOFRAN IV PRN (17:06)
[2016-12-09] MEDS: DULCOLAX PR SCH (20:18)
[2016-12-10] MEDS: DILAUDID IV PRN ×3 (02:01→08:21)
[2016-12-10] MEDS: ZOSYN 3.375 GM in NS 50 ML IV SCH ×2 (02:01→08:24)
[2016-12-10] MEDS ORDERED: ZOSYN ONE (06:53)
[2016-12-10 07:14] VITALS: BP 112/67
[2016-12-10] MEDS: REGLAN IV SCH (08:22)
[2016-12-10] MEDS: PROTONIX IV SCH (08:25)
[2016-12-10] MEDS: SODIUM CHLORIDE 0.9% INJ SCH (08:25)
[2016-12-10] MEDS: D5 1/2 NS 1,000 ML IV SCH (08:35)
--- NOTE | 2016-12-19 14:08 | DISCHARGE SUMMARY ---
ADMISSION DATE: 12/06/2016 DISCHARGE DATE: 12/10/2016 DIAGNOSES: Continued abdominal pain status post cholecystectomy with postoperative bile leak requiring drain placement and ERCP and stent placement by Dr. Mcginnis. HOSPITAL COURSE: The patient is a morbidly obese 36-year-old white female who was originally seen with chronic abdominal pain. She was referred by after a negative workup for right lower quadrant pain including CT scan and pelvic ultrasound. There was no evidence of appendicitis. An ultrasound was normal of the gallbladder. The HIDA scan revealed a low number. She subsequently underwent an uneventful cholecystectomy with negative operative cholangiogram but developed a bile leak postoperatively. Reinspection at the time of drain placement revealed no evidence of pathology in the right lower quadrant. Uterus, tubes and ovaries and appendix all appeared to be normal. The drains were placed. Dr. Mcginnis performed an ERCP and stent placement. Subsequent to this she continued to have pain, however the drains slowed down and were subsequently removed prior to her discharge. She was seen in the office on 12/03 and was doing okay however she was seen in the emergency room on 12/06 with elevated white count and bilious vomiting. I have a feeling that she has an element of gastroparesis as she vomited undigested food on the day of surgery and denied that she had eaten anything 8 hours prior to the surgery. This hospitalization revealed a bile collection in the subhepatic space on the initial CT. For planned CT drainage the next day the biloma was dissipated and half the size that it was. For this reason, no other procedures were performed other than consultation with Dr. Palma. She did improve. Nasogastric tube that was placed in the emergency had been removed and dietary advancements were fairly well tolerated as long she took it slow. She was subsequently allowed home on 12/10 on [place], Zofran, Reglan and multivitamins. She will be seen in the office on 12/14. cc: Sha Daniels MD
== END 2016-12-10 09:29 | disposition home or self-care (01) ==
LOC: 4N 04:04 → ED 04:04 → OBSVTOIN 08:05 → 3N 12-07 20:49
PROVIDERS: ADMIT Surgery; ATTEND Surgery